=== PATIENT | female | born 1985 | race Caucasian/White ===

== ENCOUNTER 2019-08-30 19:16 | Emergency (ER) | payer SELFPAY ==
[~2019-08-30] VITALS: Ht 154.9 cm; Wt 64.2 kg
[2019-08-30 19:40] VITALS: BP 108/64
[2019-08-30] MEDS ORDERED: DIPHENHYDRAMINE 50 MG CAPSULE ONE (19:50)
[2019-08-30] MEDS ORDERED: FAMOTIDINE 20 MG TABLET ONE (19:52)
[2019-08-30] MEDS ORDERED: DIPHENHYDRAMINE 25 MG CAPSULE PO ONE (20:00)
[2019-08-30] MEDS ORDERED: FAMOTIDINE 20 MG TABLET PO ONE (20:00)
== END 2019-08-30 20:32 | disposition home or self-care (01) ==
LOC: ED 20:00
DX: L23.2 Allergic contact dermatitis due to cosmetics (principal)
CPT/HCPCS: 99284; J7512; Q0163